=== PATIENT | male | born 1950 | race Caucasian/White ===

== ENCOUNTER 2016-12-29 08:00 | Outpatient (CLI) | payer OTHER ==
[2016-12-29 13:18] LABS: BASOPHILS # (AUTO) 0.1 10^3/uL (0.0-0.1); BASOPHILS % (AUTO) 0.7 %; EOSINOPHILS # (AUTO) 0.4 10^3/uL (0.0-0.7); EOSINOPHILS % (AUTO) 4.5 %; HCT - HEMATOCRIT 47.7 % (42.0-52.0); HGB - HEMOGLOBIN 16.7 g/dL (14.0-18.0); LYMPHOCYTES % (AUTO) 24.8 %; MEAN CORPUSCULAR HEMOGLOBIN 31.7 pg (27.0-31.0); MEAN CORPUSCULAR VOLUME 90.4 fL (80.0-94.0); MEAN PLATELET VOLUME 8.3 fL (7.4-11.4); MONOCYTES # (AUTO) 0.6 10^3/uL (0.0-1.0); MONOCYTES % (AUTO) 7.5 %; NEUTROPHILS % (AUTO) 62.5 %; NUCLEATED RED BLOOD CELLS AUTO 0.1 /100WBC; RED BLOOD COUNT 5.27 10^6/uL (4.70-6.10); RED CELL DISTRIBUTION WIDTH 14.2 % (12.0-15.0); UNCORRECTED WHITE BLOOD COUNT 7.9 x10^3/uL; WHITE BLOOD COUNT 7.9 x10^3/uL (4.8-10.8)
[2016-12-29 13:43] LABS: ALBUMIN/GLOBULIN RATIO 1.5 (1.0-2.2); BILIRUBIN,TOTAL 0.5 mg/dL (0.2-1.0); BUN - BLOOD UREA NITROGEN 15 mg/dL (6-20); CALCIUM 9.3 mg/dL (8.5-10.3); CARBON DIOXIDE - CO2 26 mmol/L (21-32); CHLORIDE 102 mmol/L (101-111); CHOL/HDL RATIO 4.2 (<5.0); CHOLESTEROL 146 mg/dL; CREATININE 1.5 mg/dL (0.6-1.2); GFR - MDRD 47 (>89); GLUCOSE 110 mg/dL (70-100); HDL CHOLESTEROL 35 mg/dL; LDL/HDL RATIO 1.5 (<3.6); SODIUM 136 mmol/L (135-145); TOTAL PROTEIN 7.2 g/dL (6.7-8.2); TRIGLYCERIDES 284 mg/dL; VLDL CHOLESTEROL 57 mg/dL
== END 2016-12-29 08:01 | disposition home or self-care (01) ==
LOC: LAB.WCP 08:00
PROVIDERS: ATTEND Family Medicine
DX: N18.3 Chronic kidney disease, stage 3 (moderate) (principal); M10.00 Idiopathic gout, unspecified site; I10 Essential (primary) hypertension; R97.20 Elevated prostate specific antigen [PSA]
CPT/HCPCS: 36415; 80053; 80061; 84153; 84443; 84550; 85025

== ENCOUNTER 2017-09-16 16:39 | Outpatient (CLI) | payer OTHER ==
[2017-09-16 19:57] LABS: HIV RAPID SCREEN NEGATIVE (NEGATIVE)
[2017-09-17 12:56] LABS: HIV AG/AB 4TH GEN NON-REACTIVE (NON-REACTIVE)
[2017-09-17 13:24] LABS: HEPATITIS B SURFACE ANTIGEN NON-REACTIVE (NON-REACTIVE); HEPATITIS C ANTIBODY NON-REACTIVE (NON-REACTIVE)
== END 2017-09-16 16:40 | disposition home or self-care (01) ==
LOC: LAB.WCP 16:39
PROVIDERS: ATTEND Dentist
DX: Z77.21 Contact with and (suspected) exposure to potentially hazardous body fluids (principal); W46.1XXA Contact with contaminated hypodermic needle, initial encounter
CPT/HCPCS: 36415; 86803; 87340; 87389

== ENCOUNTER 2018-01-23 08:14 | Outpatient (CLI) | payer OTHER, MEDICARE ==
[2018-01-23 12:52] LABS: BASOPHILS % (AUTO) 0.5 %; EOSINOPHILS # (AUTO) 0.3 10^3/uL (0.0-0.7); EOSINOPHILS % (AUTO) 3.4 %; HGB - HEMOGLOBIN 16.4 g/dL (14.0-18.0); LYMPHOCYTES # (AUTO) 2.2 10^3/uL (1.5-3.5); LYMPHOCYTES % (AUTO) 23.7 %; MEAN CORPUSCULAR HEMOGLOBIN 31.2 pg (27.0-31.0); MEAN CORPUSCULAR HGB CONC 34.5 g/dL (32.0-36.0); MEAN CORPUSCULAR VOLUME 90.2 fL (80.0-94.0); MEAN PLATELET VOLUME 8.2 fL (7.4-11.4); MONOCYTES # (AUTO) 0.7 10^3/uL (0.0-1.0); MONOCYTES % (AUTO) 7.7 %; NEUTROPHILS % (AUTO) 64.7 %; PLT - PLATELET COUNT 208 10^3/uL (130-450); RED BLOOD COUNT 5.27 10^6/uL (4.70-6.10); RED CELL DISTRIBUTION WIDTH 14.2 % (12.0-15.0); WHITE BLOOD COUNT 9.2 x10^3/uL (4.8-10.8)
[2018-01-23 13:14] LABS: ALBUMIN/GLOBULIN RATIO 1.2 (1.0-2.2); ALKALINE PHOSPHATASE 86 IU/L (42-121); ALT ALANINE AMINOTRANSFERASE 31 IU/L (10-60); AST ASPARTATE AMINOTRANSFERASE 21 IU/L (10-42); BILIRUBIN,TOTAL 0.9 mg/dL (0.2-1.0); BUN - BLOOD UREA NITROGEN 16 mg/dL (6-20); CALCIUM 9.7 mg/dL (8.5-10.3); CARBON DIOXIDE - CO2 27 mmol/L (21-32); CHLORIDE 100 mmol/L (101-111); CHOL/HDL RATIO 3.3 (<5.0); CHOLESTEROL 150 mg/dL; CREATININE 1.4 mg/dL (0.6-1.2); GFR - MDRD 51 (>89); GLUCOSE 104 mg/dL (70-100); HDL CHOLESTEROL 45 mg/dL; LDL CHOLESTEROL,CALCULATED 86 mg/dL; LDL/HDL RATIO 1.9 (<3.6); SODIUM 135 mmol/L (135-145); TOTAL PROTEIN 7.4 g/dL (6.7-8.2); VLDL CHOLESTEROL 19 mg/dL
== END 2018-01-23 23:59 | disposition home or self-care (01) ==
LOC: LAB.WCP 08:14
PROVIDERS: ATTEND Family Medicine
DX: I12.9 Hypertensive chronic kidney disease with stage 1 through stage 4 chronic kidney disease, or unspecified chronic kidney disease (principal); N18.3 Chronic kidney disease, stage 3 (moderate)
CPT/HCPCS: 36415; 80053; 80061; 83721; 84443; 85025

== ENCOUNTER 2018-01-29 12:40 | Outpatient (CLI) | payer OTHER, MEDICARE | END 2018-01-29 12:41 | disposition home or self-care (01) | LOC: DI 12:40 | PROVIDERS: ATTEND Family Medicine | DX: I48.91 Unspecified atrial fibrillation (principal) | CPT/HCPCS: 93306 ==

== ENCOUNTER 2018-02-22 11:49 | Outpatient (CLI) | payer OTHER, MEDICARE ==
[2018-02-22 19:07] LABS: BASOPHILS % (AUTO) 0.2 %; EOSINOPHILS # (AUTO) 0.7 10^3/uL (0.0-0.7); HGB - HEMOGLOBIN 17.6 g/dL (14.0-18.0); LYMPHOCYTES # (AUTO) 0.9 10^3/uL (1.5-3.5); LYMPHOCYTES % (AUTO) 4.8 %; MEAN CORPUSCULAR HEMOGLOBIN 30.8 pg (27.0-31.0); MEAN CORPUSCULAR HGB CONC 33.2 g/dL (32.0-36.0); MEAN CORPUSCULAR VOLUME 92.8 fL (80.0-94.0); MONOCYTES # (AUTO) 1.2 10^3/uL (0.0-1.0); MONOCYTES % (AUTO) 6.5 %; NEUTROPHILS # (AUTO) 15.3 10^3/uL (1.5-6.6); NEUTROPHILS % (AUTO) 84.5 %; PLT - PLATELET COUNT 218 10^3/uL (130-450); RED BLOOD COUNT 5.71 10^6/uL (4.70-6.10); RED CELL DISTRIBUTION WIDTH 14.1 % (12.0-15.0)
[2018-02-22 19:16] LABS: ALBUMIN 4.3 g/dL (3.2-5.5); ALBUMIN/GLOBULIN RATIO 1.5 (1.0-2.2); BILIRUBIN,TOTAL 0.8 mg/dL (0.2-1.0); CALCIUM 9.3 mg/dL (8.5-10.3); CREATININE 1.3 mg/dL (0.6-1.2); TOTAL PROTEIN 7.1 g/dL (6.7-8.2)
== END 2018-02-22 23:59 | disposition home or self-care (01) ==
LOC: LAB.WCP 11:49
PROVIDERS: ATTEND Family Medicine
DX: R10.9 Unspecified abdominal pain (principal); R19.7 Diarrhea, unspecified
CPT/HCPCS: 36415; 80053; 82150; 83690; 85025

== ENCOUNTER 2018-03-24 09:37 | Outpatient (CLI) | payer OTHER, MEDICARE ==
--- NOTE | 2018-03-24 12:51 | CARDIAC PROCEDURE NOTE ---
DATE OF SERVICE: 03/24/2018 Physician: Gregoria Alvarez MD, [facility] INDICATION: Atrial fibrillation. CARDIAC RISK FACTORS: Male gender, advanced age, hypertension family history of CAD. PROCEDURE: After signing informed consent, the patient underwent a Cliff- protocol treadmill stress test with nuclear myocardial perfusion imaging. Resting heart rate: 54 in sinus rhythm. Peak heart rate: 174 in atrial fibrillation (this is >100% predicted maximum heart rate for age). Resting blood pressure: 132/72. Peak blood pressure: 170/80. The patient exercised for 4 minutes and 23 seconds on a Cliff-protocol treadmill stress test. His heart rate increased normally and was in sinus rhythm at rates of 120 in stage 1, and then is stage 2 he went into atrial fibrillation with rapid rate in the 160s. His peak heart rate was 174 (>100% PMHR). The patient remained in atrial fibrillation all through recovery. The patient had mild shortness of breath at the first stage, and moderate to severe shortness of breath at the second stage, and also complained of 3/10 chest pain at peak which resolved after 2 minutes of recovery. He rated his exertional level at 16 to 17 on the Neri scale ("very difficult"). Oxygen saturation was 99% at peak on room air. EKG at rest: Normal sinus rhythm, left atrial enlargement, early R/S transition. EKG at peak: Atrial fibrillation with diffuse nonspecific ST segment changes including [address] depressions in leads II, III and aVF and v4 through v6, and [address] depression in v3, and [address] depression in v2. Unchanged early R/S transition. SUMMARY 1. Abnormal resting EKG and abnormal development of atrial fibrillation during treadmill exercise. 2. Atrial fibrillation with rapid ventricular response at peak, which persisted through recovery. 3. Symptoms of chest pain occurred at peak exercise, at peak heart rate. 4. Ischemic changes are present by EKG criteria during this treadmill stress test. 5. Nuclear images reported separately. 6. The patient was advised that his test was abnormal and that he should not be performing his routine elliptical exercise work-out or doing other exertion such as shoveling snow, until he is okayed to do so by his medical providers. 7. I spoke to Dr. Etienne regarding all the above (since Dr Metzger was called but was out of town). cc: Lillie Rondon MD TD: 03/24/2018 12:38 [email or web address]
--- NOTE | 2018-03-24 15:34 | Nuclear Medicine Report ---
Reason: A FIB Procedure Date: 03/24/2018 Accession Number: [id number] / [id number] Procedure: NM - Myocardial Perfusion STR/RST CPT Code: FULL RESULT: EXAM: SINGLE-ISOTOPE EXERCISE STRESS TEST. SINGLE-ISOTOPE AND ONE-DAY REST/STRESS MYOCARDIAL PERFUSION SCANS WITH TOMOGRAPHIC IMAGING, QUANTITATIVE ANALYSIS, WALL MOTION ANALYSIS AND CALCULATION OF EJECTION FRACTION. EXAM DATE: 03/24/2018 01:19 PM. CLINICAL HISTORY: Atrial fibrillation. COMPARISON: None available. TECHNIQUE: A rest myocardial perfusion scan was done with tomography after the intravenous administration of 10.5 mCi Tc-99m sestamibi. After an appropriate delay, a treadmill exercise stress was performed according to department protocol. The patient exercised for 4 minutes and 23 seconds. The maximum heart rate was 174 bpm, which was 112% of the maximum predicted heart rate of 155 bpm. At approximately peak heart rate, 43.7 mCi of Tc-99m sestamibi was injected for stress myocardial perfusion scan. Motion correction was applied when appropriate. Gated tomographic images were obtained for wall motion analysis and computation of left ventricular ejection fraction. FINDINGS: On visual analysis, no fixed or reversible perfusion defects are evident. Computer analysis. Summed stress score 5 Summed rest score 0 Summed difference score 5 Wall motion analysis demonstrates septal hypokinesis The left ventricular end-diastolic volume is 63 cc. The left ventricular end-systolic volume is 16 cc. The left ventricular ejection fraction is calculated to be 75%. IMPRESSION: 1. On visual analysis, no fixed or reversible perfusion defects. 2. Normal left ventricular ejection fraction of 75%. 3. Septal hypokinesis. 4. Normal left ventricular cavity size, no change with stress. 5. On computer analysis, mildly abnormal exam with moderate ischemia. RADIA
== END 2018-03-24 09:38 | disposition home or self-care (01) ==
LOC: DI 09:37
PROVIDERS: ATTEND Internal Medicine Cardiovascular Disease
DX: I25.9 Chronic ischemic heart disease, unspecified (principal); R94.31 Abnormal electrocardiogram [ECG] [EKG]; I48.91 Unspecified atrial fibrillation; R07.9 Chest pain, unspecified; I10 Essential (primary) hypertension; Z82.49 Family history of ischemic heart disease and other diseases of the circulatory system
CPT/HCPCS: 78452; 93017; A9500

== ENCOUNTER 2018-04-28 15:10 | Outpatient (CLI) | payer OTHER, MEDICARE ==
[2018-04-28 20:11] LABS: CALCIUM 9.3 mg/dL (8.5-10.3); CREATININE 1.5 mg/dL (0.6-1.2)
== END 2018-04-28 23:59 ==
LOC: LAB.WCP 15:10
PROVIDERS: ATTEND Family Medicine
DX: I48.91 Unspecified atrial fibrillation (principal); Z12.5 Encounter for screening for malignant neoplasm of prostate
CPT/HCPCS: 36415; 80048; 84153

== ENCOUNTER 2019-04-27 08:00 | Outpatient (CLI) | payer OTHER, MEDICARE ==
[2019-04-27 12:22] LABS: BASOPHILS # (AUTO) 0.1 10^3/uL (0.0-0.1); BASOPHILS % (AUTO) 0.8 %; EOSINOPHILS # (AUTO) 0.3 10^3/uL (0.0-0.7); EOSINOPHILS % (AUTO) 3.6 %; HGB - HEMOGLOBIN 16.3 g/dL (14.0-18.0); LYMPHOCYTES % (AUTO) 26.2 %; MEAN CORPUSCULAR HEMOGLOBIN 30.9 pg (27.0-31.0); MEAN CORPUSCULAR HGB CONC 33.3 g/dL (32.0-36.0); MEAN CORPUSCULAR VOLUME 92.8 fL (80.0-94.0); MEAN PLATELET VOLUME 9.9 fL (7.4-11.4); MONOCYTES # (AUTO) 0.7 10^3/uL (0.0-1.0); MONOCYTES % (AUTO) 8.8 %; NEUTROPHILS # (AUTO) 4.7 10^3/uL (1.5-6.6); NEUTROPHILS % (AUTO) 60.1 %; PLT - PLATELET COUNT 184 10^3/uL (130-450); RED BLOOD COUNT 5.28 10^6/uL (4.70-6.10); RED CELL DISTRIBUTION WIDTH 13.5 % (12.0-15.0); WHITE BLOOD COUNT 7.8 x10^3/uL (4.8-10.8)
[2019-04-27 12:58] LABS: ALBUMIN 4.2 g/dL (3.2-5.5); ALBUMIN/GLOBULIN RATIO 1.4 (1.0-2.2); ALKALINE PHOSPHATASE 69 IU/L (42-121); ALT ALANINE AMINOTRANSFERASE 47 IU/L (10-60); AST ASPARTATE AMINOTRANSFERASE 36 IU/L (10-42); BILIRUBIN,TOTAL 0.6 mg/dL (0.2-1.0); BUN - BLOOD UREA NITROGEN 20 mg/dL (6-20); CALCIUM 9.4 mg/dL (8.5-10.3); CARBON DIOXIDE - CO2 29 mmol/L (21-32); CHLORIDE 102 mmol/L (101-111); CHOL/HDL RATIO 3.5 (<5.0); CHOLESTEROL 142 mg/dL; CREATININE 1.6 mg/dL (0.6-1.2); GFR - MDRD 43 (>89); GLUCOSE 128 mg/dL (70-100); HDL CHOLESTEROL 41 mg/dL; LDL CHOLESTEROL,CALCULATED 74 mg/dL; LDL/HDL RATIO 1.8 (<3.6); SODIUM 138 mmol/L (135-145); TOTAL PROTEIN 7.3 g/dL (6.7-8.2); VLDL CHOLESTEROL 27 mg/dL
[2019-04-27 13:03] LABS: PSA FREE 0.904 ng/mL (0.16-2.81)
[2019-04-27 13:04] LABS: PSA TOTAL 3.095 ng/mL (0.000-2.000)
== END 2019-04-27 23:59 | disposition home or self-care (01) ==
LOC: LAB.WCP 08:00
PROVIDERS: ATTEND Family Medicine
DX: I48.91 Unspecified atrial fibrillation (principal); N18.3 Chronic kidney disease, stage 3 (moderate); R97.20 Elevated prostate specific antigen [PSA]
CPT/HCPCS: 36415; 80053; 80061; 83721; 84153; 84154; 84443; 85025

== ENCOUNTER 2019-10-28 22:35 | Emergency (ER) | payer OTHER, MEDICARE ==
--- NOTE | 2019-10-28 22:37 | ED Physician Documentation ---
PD HPI HEENT - Stated complaint Stated Complaint: DIFFICULTY SWALLOWING - History obtained from History obtained from: Patient - History of Present Illness Timing - onset: Enter time (21:30), Today Timing - details: Abrupt onset, Still present Pain level now: 0 Location: Other (upper midline chest) Improves: Nothing Worsens: Swalllowing Associated symptoms: No: Fever Recently seen: Not recently seen - Additional information Additional information: patient was eating dinner tonight, approximately 9:30 PM, when he had sensation of something getting stuck (he points to mid/upper midline chest). He says he hasn't been able to eat or drink anything since then; he says he has had similar symptoms before but "usually I can drink enough water to make it go away". Review of Systems Constitutional: denies: Fever, Chills, Sweats Throat: denies: Sore throat Cardiac: reports: Chest pain / pressure. denies: Palpitations, Pedal edema, Calf pain Respiratory: denies: Dyspnea, Cough GI: denies: Abdominal Pain, Nausea, Vomiting PD PAST MEDICAL HISTORY - Past Medical History Cardiovascular: Hypertension, Atrial fibrillation Endocrine/Autoimmune: None - Present Medications Home Medications: Ambulatory Orders Medication Instructions Recorded Confirmed Metoprolol Succinate 25 mg PO DAILY 10/28/19 10/28/19 Rivaroxaban [Xarelto] 10 mg PO DAILY 10/28/19 10/28/19 - Allergies Allergies/Adverse Reactions: Allergies Allergy/AdvReac Type Severity Reaction Status Date / Time No Known Drug Allergies Allergy Verified 10/28/19 22:47 - Living Situation Living Arrangement: reports: At home - Social History Does the pt smoke?: No Smoking Status: Never smoker Does the pt drink ETOH?: No Does the pt have substance abuse?: No - Immunizations Immunizations are current?: No Immunizations: TDAP >10years/unknown PD ED PE NORMAL - Vitals Vital signs reviewed: Yes - General General: Alert and oriented X 3, No acute distress, Well developed/nourished - HEENT HEENT: Moist mucous membranes - Cardiac Cardiac: No murmur - Respiratory Respiratory: No respiratory distress, Clear bilaterally - Abdomen Abdomen: Soft, Non tender, Non distended PD ED PE EXPANDED - Cardiac Cardiac: Irregularly irregular Results - Vitals Vitals: Vital Signs - 24 hr 10/28/19 10/28/19 10/28/19 22:35 23:18 23:35 Temperature 35.9 C L 36.4 C L Heart Rate 85 91 86 Respiratory 16 17 20 Rate Blood Pressure 177/112 H 169/117 H 159/114 H O2 Saturation 97 96 98 10/29/19 10/29/19 00:27 01:10 Temperature 36.4 C L Heart Rate 87 87 Respiratory 16 16 Rate Blood Pressure 159/114 H 177/111 H O2 Saturation 97 98 Oxygen O2 Source Room air - EKG (time done) No standard instances Rate: Rate (enter#) (85) Rhythm: Atrial fibrillation [place]: Normal QRS: Normal Ischemia: Normal ST segments - Labs Labs: Laboratory Tests 10/28/19 10/28/19 10/28/19 22:50 22:50 22:50 WBC 7.7 RBC 5.59 Hgb 17.6 Hct 51.6 MCV 92.3 MCH 31.5 H MCHC 34.1 RDW 13.2 Plt Count 185 MPV 9.4 Neut # (Auto) 4.5 Lymph # (Auto) 2.1 [place] # (Auto) 0.7 Eos # (Auto) 0.3 Baso # (Auto) 0.1 Absolute Nucleated RBC 0.00 Nucleated RBC % 0.0 PT 17.5 H INR 1.6 H APTT 43.4 H Sodium 141 Potassium 4.0 Chloride 104 Carbon Dioxide 29 Anion Gap 8.0 BUN 15 Creatinine 1.4 H Estimated GFR (MDRD) 51 L Glucose 118 H Calcium 9.2 Total Bilirubin 0.9 AST 24 ALT 33 Alkaline Phosphatase 76 Total Protein 7.3 Albumin 4.4 Globulin 2.9 Albumin/Globulin Ratio 1.5 Lipase 89 H - Rads (name of study) chest xray Radiology: Prelim report reviewed, See rad report PD MEDICAL DECISION MAKING - ED course Complexity details: reviewed results, re-evaluated patient, considered differential, d/w patient ED course: Patient had no change in symptoms after IV glucagon and observation. He continued to not be able to even swallow his own saliva. He wanted to try to drink water and then soda, as he usually has been able to obtain symptomatic relief with drinking fluids; he was unable to tolerate these. D/W Dr. Boo, will provide holding orders with plan to perform SDS at 6 AM (upper endoscopy). Patient was agreeable with this plan. Shortly before patient was to go to the floor, he reported sudden resolution of his symptoms and was able to tolerate several cups of water. He requests d/c home. He is discharged with encouragement to f/u with his PMD for consideration of upper endoscopy in outpatient setting. I updated Dr. Boo with this development and he is aware patient is getting discharged. Departure - Departure Disposition: 01 Home, Self Care Clinical Impression: Esophageal obstruction Condition: Good Instructions: ED Foreign Body Esophageal Rslv Follow-Up: Jose Etienne MD [Primary Care Provider] - Discharge Date/Time: 10/29/19 01:21
[2019-10-28] MEDS ORDERED: GLUCAGON 1 MG/ML VIAL IVP STA (22:49)
[2019-10-28 22:59] LABS: BASOPHILS # (AUTO) 0.1 10^3/uL (0.0-0.1); BASOPHILS % (AUTO) 0.9 %; EOSINOPHILS # (AUTO) 0.3 10^3/uL (0.0-0.7); EOSINOPHILS % (AUTO) 4.3 %; HGB - HEMOGLOBIN 17.6 g/dL (14.0-18.0); LYMPHOCYTES # (AUTO) 2.1 10^3/uL (1.5-3.5); LYMPHOCYTES % (AUTO) 26.8 %; MEAN CORPUSCULAR HEMOGLOBIN 31.5 pg (27.0-31.0); MEAN CORPUSCULAR HGB CONC 34.1 g/dL (32.0-36.0); MEAN CORPUSCULAR VOLUME 92.3 fL (80.0-94.0); MEAN PLATELET VOLUME 9.4 fL (7.4-11.4); MONOCYTES # (AUTO) 0.7 10^3/uL (0.0-1.0); MONOCYTES % (AUTO) 8.6 %; NEUTROPHILS # (AUTO) 4.5 10^3/uL (1.5-6.6); NEUTROPHILS % (AUTO) 58.7 %; PLT - PLATELET COUNT 185 10^3/uL (130-450); RED BLOOD COUNT 5.59 10^6/uL (4.70-6.10); RED CELL DISTRIBUTION WIDTH 13.2 % (12.0-15.0); WHITE BLOOD COUNT 7.7 x10^3/uL (4.8-10.8)
[2019-10-28 23:04] LABS: INR 1.6 (0.8-1.2); PT - PROTHROMBIN TIME 17.5 secs (9.9-12.6)
[2019-10-28 23:11] LABS: ALBUMIN 4.4 g/dL (3.2-5.5); ALBUMIN/GLOBULIN RATIO 1.5 (1.0-2.2); BILIRUBIN,TOTAL 0.9 mg/dL (0.2-1.0); CALCIUM 9.2 mg/dL (8.5-10.3); CREATININE 1.4 mg/dL (0.6-1.2); PARTIAL THROMBOPLASTIN TIME 43.4 secs (24.9-33.3); TOTAL PROTEIN 7.3 g/dL (6.7-8.2)
[2019-10-29 01:21] VITALS: BP 177/111
--- NOTE | 2019-10-29 08:24 | XRAY Report ---
PROCEDURE: Chest 1 View X-Ray INDICATIONS: chest discomfort TECHNIQUE: One view of the chest was acquired. COMPARISON: None FINDINGS: Surgical changes and devices: None. Lungs and pleura: No pleural effusions or pneumothorax. Lungs are clear. Mediastinum: Mediastinal contours appear normal. Heart size is normal. Bones and chest wall: No suspicious bony lesions. Overlying soft tissues appear unremarkable. IMPRESSION: Normal for age, source of current chest discomfort is not identified. Agree with preliminary interpretation. Reviewed by: Rory Kirkpatrick MD on 10/29/2019 8:22 AM PDT Approved by: Rory Kirkpatrick MD on 10/29/2019 8:22 AM PDT Station ID: [id number]
== END 2019-10-29 01:21 | disposition home or self-care (01) ==
LOC: ED 22:35
DX: K22.2 Esophageal obstruction (principal); I48.91 Unspecified atrial fibrillation; I10 Essential (primary) hypertension
CPT/HCPCS: 36415; 71045; 80053; 83690; 85025; 85610; 85730; 93005; 96374; 99284

== ENCOUNTER 2020-02-05 10:11 | Outpatient (CLI) | payer OTHER, MEDICARE | END 2020-02-05 10:12 | disposition home or self-care (01) | LOC: DI 10:11 | PROVIDERS: ATTEND Internal Medicine Cardiovascular Disease | DX: I48.91 Unspecified atrial fibrillation (principal) | CPT/HCPCS: 93306 ==

== ENCOUNTER 2020-03-17 07:00 | Outpatient (CLI) | payer OTHER, MEDICARE | END 2020-03-17 23:59 | disposition home or self-care (01) | LOC: COV 07:00 | PROVIDERS: ATTEND Surgery | DX: Z01.812 Encounter for preprocedural laboratory examination (principal); R13.10 Dysphagia, unspecified; Z86.010 Personal history of colon polyps; Z20.822 Contact with and (suspected) exposure to COVID-19 ==

== ENCOUNTER 2020-03-21 10:13 | Day surgery (SDC) | payer OTHER, MEDICARE ==
[2020-03-21] MEDS ORDERED: LIDO GARGLE 30 ML BOTTLE ONE (10:46)
[2020-03-21] MEDS ORDERED: LACTATED RINGERS 1,000 ML IV ONE (10:59)
[2020-03-21] MEDS ORDERED: LIDO GARGLE 30 ML BOTTLE TOP ONE ×2 (11:24→11:46)
[2020-03-21] MEDS ORDERED: BENZOCAINE/TETRACAINE/BUTAMBEN 20 GM TOP ONE ×2 (11:24→11:46)
--- NOTE | 2020-03-21 11:40 | HISTORY & PHYSICAL EXAMINATION ---
Chief Complaint - Chief Complaint Chief Complaint: occasional trouble swallowing and reflux. History of Present Illness - History Obtained From History obtained from: patient Exam Limitations: none - History of Present Illness HPI Comment/Other: He has had occasional trouble swallowing as well as heart burn. He had a colon polyp removed 8 years ago. He is here for EGD and colonoscopy History - Past Medical History Cardiovascular: reports: Hypertension, Atrial fibrillation Respiratory: reports: None Endocrine/Autoimmune: reports: None GI: reports: None : reports: None HEENT: reports: Other Psych: reports: None Musculoskeletal: reports: None Derm: reports: None MRSA Hx?: No - Past Surgical History General: HEENT: reports: Other - POLST Patient has POLST: No Meds/Allgy - Home Medications Home Medications: Ambulatory Orders Medication Instructions Recorded Confirmed Metoprolol Succinate 25 mg PO BID 10/28/19 03/21/20 Rivaroxaban [Xarelto] 5 mg PO DAILY 10/28/19 03/20/20 - Allergies Allergies/Adverse Reactions: Allergies Allergy/AdvReac Type Severity Reaction Status Date / Time Latex, Natural Rubber Allergy Unknown Verified 03/20/20 12:32 lisinopril Allergy Unknown Verified 03/20/20 12:32 shellfish derived Allergy Unknown Verified 03/20/20 12:32 shrimp Allergy Unknown Verified 03/20/20 12:32 Review of Systems - Constitutional Constitutional: reports: Fatigue (10 pt ros as above otherwise unremarkable) Exam - Vital Signs Reviewed Vital Signs: Yes Vital Signs: Vital Signs x48h Temp Pulse Resp BP Pulse Ox 03/21/20 10:38 36.1 C L 55 L 20 157/92 H 98 - Physical Exam General Appearance: positive: No acute distress, Alert Eyes Bilateral: positive: Normal inspection, PERRL Neck: positive: No JVD Respiratory: positive: No respiratory distress Cardiovascular: positive: Regular rate & rhythm Abdomen: positive: Non-tender, No distention Neurologic/Psychiatric: positive: Oriented x3 Conclusion/Plan - Problem List (1) Dysphagia Conclusion/Plan: He has had trouble swallowing and heart burn. He has history of a colon polyp on colonoscopy 2012. plan egd and colonoscopy. parq held and consent obtained
[2020-03-21] MEDS ORDERED: MIDAZOLAM 2 MG/2 ML VIAL ONE ×4 (11:42→12:28)
[2020-03-21] MEDS ORDERED: fentaNYL 250 MCG/5 ML VIAL ONE (11:42)
[2020-03-21] MEDS ORDERED: LACTATED RINGERS 275 ML IV ONE (12:48)
[2020-03-21 13:36] VITALS: BP 131/92
== END 2020-03-21 10:14 | disposition home or self-care (01) ==
LOC: SDS 10:13
PROVIDERS: ATTEND Surgery
PROC: 0DBP8ZX Excision of Rectum, Via Natural or Artificial Opening Endoscopic, Diagnostic (ICD-10-PCS; 2020-03-21)
PROC: 0DBM8ZZ Excision of Descending Colon, Via Natural or Artificial Opening Endoscopic (ICD-10-PCS; 2020-03-21)
PROC: 0DB98ZX Excision of Duodenum, Via Natural or Artificial Opening Endoscopic, Diagnostic (ICD-10-PCS; 2020-03-21)
PROC: 0DB78ZX Excision of Stomach, Pylorus, Via Natural or Artificial Opening Endoscopic, Diagnostic (ICD-10-PCS; 2020-03-21)
PROC: 0DB68ZX Excision of Stomach, Via Natural or Artificial Opening Endoscopic, Diagnostic (ICD-10-PCS; 2020-03-21)
PROC: 0DBK8ZZ Excision of Ascending Colon, Via Natural or Artificial Opening Endoscopic (ICD-10-PCS; principal; 2020-03-21 12:30)
PROC: 0DBL8ZZ Excision of Transverse Colon, Via Natural or Artificial Opening Endoscopic (ICD-10-PCS; 2020-03-21 12:30)
DX: Z12.11 Encounter for screening for malignant neoplasm of colon (principal); R13.10 Dysphagia, unspecified; K21.9 Gastro-esophageal reflux disease without esophagitis; D12.2 Benign neoplasm of ascending colon; D12.3 Benign neoplasm of transverse colon; D12.4 Benign neoplasm of descending colon; K62.1 Rectal polyp; K64.4 Residual hemorrhoidal skin tags; K57.30 Diverticulosis of large intestine without perforation or abscess without bleeding; K29.70 Gastritis, unspecified, without bleeding; K29.80 Duodenitis without bleeding; I10 Essential (primary) hypertension; I48.91 Unspecified atrial fibrillation
CPT/HCPCS: 43239; 45380; A9270; J3010; J7120

== ENCOUNTER 2020-04-18 08:00 | Outpatient (CLI) | payer OTHER, MEDICARE ==
[2020-04-18 12:05] LABS: BASOPHILS # (AUTO) 0.1 10^3/uL (0.0-0.1); BASOPHILS % (AUTO) 0.9 %; EOSINOPHILS # (AUTO) 0.3 10^3/uL (0.0-0.7); EOSINOPHILS % (AUTO) 4.4 %; HCT - HEMATOCRIT 49.4 % (42.0-52.0); HGB - HEMOGLOBIN 16.4 g/dL (14.0-18.0); LYMPHOCYTES % (AUTO) 26.4 %; MEAN CORPUSCULAR HEMOGLOBIN 31.2 pg (27.0-31.0); MEAN CORPUSCULAR HGB CONC 33.2 g/dL (32.0-36.0); MEAN CORPUSCULAR VOLUME 93.9 fL (80.0-94.0); MEAN PLATELET VOLUME 10.3 fL (7.4-11.4); MONOCYTES # (AUTO) 0.6 10^3/uL (0.0-1.0); MONOCYTES % (AUTO) 8.5 %; NEUTROPHILS # (AUTO) 4.5 10^3/uL (1.5-6.6); NEUTROPHILS % (AUTO) 59.4 %; PLT - PLATELET COUNT 198 10^3/uL (130-450); RED BLOOD COUNT 5.26 10^6/uL (4.70-6.10); RED CELL DISTRIBUTION WIDTH 13.1 % (12.0-15.0); WHITE BLOOD COUNT 7.6 x10^3/uL (4.8-10.8)
[2020-04-18 13:11] LABS: ALBUMIN 4.4 g/dL (3.2-5.5); ALBUMIN/GLOBULIN RATIO 1.5 (1.0-2.2); ALKALINE PHOSPHATASE 82 IU/L (42-121); ALT ALANINE AMINOTRANSFERASE 70 IU/L (10-60); AST ASPARTATE AMINOTRANSFERASE 75 IU/L (10-42); BILIRUBIN,TOTAL 0.8 mg/dL (0.2-1.0); BUN - BLOOD UREA NITROGEN 15 mg/dL (6-20); CALCIUM 9.6 mg/dL (8.5-10.3); CARBON DIOXIDE - CO2 28 mmol/L (21-32); CHLORIDE 100 mmol/L (101-111); CHOL/HDL RATIO 3.2 (<5.0); CHOLESTEROL 160 mg/dL; CREATININE 1.4 mg/dL (0.6-1.2); GFR - MDRD 51 (>89); GLUCOSE 105 mg/dL (70-100); HDL CHOLESTEROL 50 mg/dL; LDL CHOLESTEROL,CALCULATED 66 mg/dL; LDL/HDL RATIO 1.3 (<3.6); POTASSIUM 4.3 mmol/L (3.5-5.0); SODIUM 138 mmol/L (135-145); TOTAL PROTEIN 7.3 g/dL (6.7-8.2); TRIGLYCERIDES 218 mg/dL; VLDL CHOLESTEROL 44 mg/dL
[2020-04-18 13:12] LABS: THYROID STIMULATING HORMONE 1.5 uIU/mL (0.34-5.60)
== END 2020-04-18 23:59 | disposition home or self-care (01) ==
LOC: LAB.WCP 08:00
PROVIDERS: ATTEND Family Medicine
DX: I48.91 Unspecified atrial fibrillation (principal); I12.9 Hypertensive chronic kidney disease with stage 1 through stage 4 chronic kidney disease, or unspecified chronic kidney disease; N18.30 Chronic kidney disease, stage 3 unspecified; R73.01 Impaired fasting glucose; D12.6 Benign neoplasm of colon, unspecified
CPT/HCPCS: 36415; 80053; 80061; 83721; 84153; 84443; 85025

== ENCOUNTER 2020-07-27 10:19 | Emergency (ER) | payer OTHER, MEDICARE ==
[2020-07-27 10:28] VITALS: BP 161/81
--- NOTE | 2020-07-27 10:37 | ED Physician Documentation ---
PD HPI HEENT - Stated complaint Stated Complaint: R EAR PRESSURE - Chief complaint Chief Complaint: Heent - History obtained from History obtained from: Patient - History of Present Illness Timing - onset: How many days ago (2) Timing - duration: Days (2) Timing - details: Gradual onset Pain level max: 2 Pain level now: 2 Location: Right ear Improves: Nothing Worsens: Other (nothing) Associated symptoms: No: Fever, Congestion, Rhinorrhea, Trismus, Unable to swallow, Swollen nodes, Facial swelling, Headache, Cough - Additional information Additional information: 69-year-old male feels like his right ear has been clogged for the past 2 days. Nothing makes it better or worse. No fevers. No chills. No cough. No congestion. No sore throat. Review of Systems Ten Systems: 10 systems reviewed and negative Constitutional: denies: Fever, Chills Respiratory: denies: Cough GI: denies: Nausea, Vomiting, Diarrhea Neurologic: denies: Headache PD PAST MEDICAL HISTORY - Past Medical History Cardiovascular: Hypertension, Atrial fibrillation Endocrine/Autoimmune: None HEENT: Other - Past Surgical History Past Surgical History: No - Present Medications Home Medications: Ambulatory Orders Medication Instructions Recorded Confirmed Metoprolol Succinate 25 mg PO BID 10/28/19 03/21/20 Rivaroxaban [Xarelto] 5 mg PO DAILY 10/28/19 03/20/20 - Allergies Allergies/Adverse Reactions: Allergies Allergy/AdvReac Type Severity Reaction Status Date / Time Latex, Natural Rubber Allergy Unknown Verified 07/27/20 10:28 lisinopril Allergy Unknown Verified 07/27/20 10:28 shellfish derived Allergy Unknown Verified 07/27/20 10:28 shrimp Allergy Unknown Verified 07/27/20 10:28 - Social History Does the pt smoke?: No Smoking Status: Never smoker Does the pt drink ETOH?: No Does the pt have substance abuse?: No - Immunizations Immunizations are current?: No Immunizations: TDAP >10years/unknown - POLST Patient has POLST: No PD ED PE NORMAL - Vitals Vital signs reviewed: Yes - General General: Alert and oriented X 3, No acute distress - HEENT HEENT: Moist mucous membranes, Other (Bilateral TMs are obstructed by wax. Right ear canal is completely occluded.) - Neck Neck: Supple, no meningeal sign - Neuro Neuro: Alert and oriented X 3 - Psych Psych: Normal mood, Normal affect Results - Vitals Vitals: Vital Signs - 24 hr 07/27/20 10:22 Temperature 36.3 C L Heart Rate 55 L Respiratory 16 Rate Blood Pressure 161/81 H O2 Saturation 99 Oxygen O2 Source Room air PD MEDICAL DECISION MAKING - ED course Complexity details: reviewed results, re-evaluated patient, considered differential, d/w patient ED course: 69-year-old male with cerumen impaction. Cerumen was removed by the nurse in the emergency department. Repeat evaluation in the throes of a mildly erythematous tympanic membrane, but no more wax. No evidence of infection. Patient counseled regarding signs and symptoms for which I believe and urgent re- evaluation would be necessary. Patient with good understanding of and agreement to plan and is comfortable going home at this time This document was made in part using voice recognition software. While efforts are made to proofread this document, sound alike and grammatical errors may occur. Departure - Departure Disposition: 01 Home, Self Care Clinical Impression: Cerumen impaction Qualifiers: Laterality: right Qualified Code(s): H61.21 - Impacted cerumen, right ear Condition: Good Instructions: ED Wax Ear Home Removal Follow-Up: Kat Curry PA-C [Primary Care Provider] - As Needed Comments: The ear wax was removed from your ear. Follow-up with your doctor for further care as needed. Return if you worsen. Discharge Date/Time: 07/27/20 11:27
== END 2020-07-27 11:27 | disposition home or self-care (01) ==
LOC: ED 10:19
DX: H61.23 Impacted cerumen, bilateral (principal); I10 Essential (primary) hypertension; I48.91 Unspecified atrial fibrillation; Z79.01 Long term (current) use of anticoagulants
CPT/HCPCS: 99282; 99284

== ENCOUNTER 2020-10-30 08:00 | Outpatient (CLI) | payer OTHER, MEDICARE ==
[2020-10-30 12:39] LABS: ALBUMIN 4.9 g/dL (3.2-5.5); ALBUMIN/GLOBULIN RATIO 1.4 (1.0-2.2); ALKALINE PHOSPHATASE 88 IU/L (42-121); ALT ALANINE AMINOTRANSFERASE 54 IU/L (10-60); AST ASPARTATE AMINOTRANSFERASE 40 IU/L (10-42); BILIRUBIN,TOTAL 0.7 mg/dL (0.2-1.0); BUN - BLOOD UREA NITROGEN 16 mg/dL (6-20); CALCIUM 9.6 mg/dL (8.5-10.3); CARBON DIOXIDE - CO2 30 mmol/L (21-32); CHLORIDE 98 mmol/L (101-111); CHOL/HDL RATIO 3.6 (<5.0); CHOLESTEROL 186 mg/dL; CREATININE 1.5 mg/dL (0.6-1.2); GFR - MDRD 47 (>89); GLUCOSE 132 mg/dL (70-100); HDL CHOLESTEROL 52 mg/dL; LDL CHOLESTEROL,CALCULATED 93 mg/dL; LDL/HDL RATIO 1.8 (<3.6); POTASSIUM 4.3 mmol/L (3.5-5.0); SODIUM 138 mmol/L (135-145); TOTAL PROTEIN 8.3 g/dL (6.7-8.2); TRIGLYCERIDES 206 mg/dL; VLDL CHOLESTEROL 41 mg/dL
== END 2020-10-30 23:59 | disposition home or self-care (01) ==
LOC: LAB.WCP 08:00
PROVIDERS: ATTEND Physician Assistant Medical
DX: I10 Essential (primary) hypertension (principal)
CPT/HCPCS: 36415; 80053; 80061; 83721

== ENCOUNTER 2022-02-08 08:37 | Outpatient (CLI) | payer OTHER, MEDICARE ==
[2022-02-08 11:52] LABS: ALBUMIN 4.5 g/dL (3.2-5.5); ALBUMIN/GLOBULIN RATIO 1.5 (1.0-2.2); ALKALINE PHOSPHATASE 76 IU/L (42-121); ALT ALANINE AMINOTRANSFERASE 28 IU/L (10-60); AST ASPARTATE AMINOTRANSFERASE 27 IU/L (10-42); BILIRUBIN,TOTAL 0.8 mg/dL (0.2-1.0); BUN - BLOOD UREA NITROGEN 22 mg/dL (6-20); CALCIUM 9.9 mg/dL (8.5-10.3); CARBON DIOXIDE - CO2 29 mmol/L (21-32); CHLORIDE 102 mmol/L (101-111); CHOL/HDL RATIO 3.7 (<5.0); CHOLESTEROL 172 mg/dL; CREATININE 1.6 mg/dL (0.6-1.2); GFR - MDRD 43 (>89); GLUCOSE 106 mg/dL (70-100); HDL CHOLESTEROL 47 mg/dL; LDL CHOLESTEROL,CALCULATED 84 mg/dL; LDL/HDL RATIO 1.8 (<3.6); POTASSIUM 4.3 mmol/L (3.5-5.0); SODIUM 139 mmol/L (135-145); TOTAL PROTEIN 7.6 g/dL (6.7-8.2); TRIGLYCERIDES 205 mg/dL; VLDL CHOLESTEROL 41 mg/dL
[2022-02-08 12:01] LABS: ESTIMATED AVERAGE GLUCOSE 137 mg/dL (70-100); HEMOGLOBIN A1c% 6.4 % (4.27-6.07)
== END 2022-02-08 08:38 | disposition home or self-care (01) ==
LOC: LAB.N 08:37
PROVIDERS: ATTEND Physician Assistant Medical
DX: I48.91 Unspecified atrial fibrillation (principal); R73.01 Impaired fasting glucose; R97.20 Elevated prostate specific antigen [PSA]
CPT/HCPCS: 36415; 80053; 80061; 83036; 83721; 84153

== ENCOUNTER 2022-08-14 09:26 | Outpatient (CLI) | payer OTHER, MEDICARE ==
[2022-08-14 19:32] LABS: ALBUMIN 3.9 g/dL (3.2-5.5); ALBUMIN/GLOBULIN RATIO 1.2 (1.0-2.2); ALKALINE PHOSPHATASE 69 IU/L (42-121); ALT ALANINE AMINOTRANSFERASE 36 IU/L (10-60); AST ASPARTATE AMINOTRANSFERASE 27 IU/L (10-42); BILIRUBIN,TOTAL 0.6 mg/dL (0.2-1.0); BUN - BLOOD UREA NITROGEN 17 mg/dL (6-20); CALCIUM 9.7 mg/dL (8.5-10.3); CARBON DIOXIDE - CO2 30 mmol/L (21-32); CHLORIDE 104 mmol/L (101-111); CHOL/HDL RATIO 3.5 (<5.0); CHOLESTEROL 167 mg/dL; CREATININE 1.5 mg/dL (0.6-1.2); GFR - MDRD 46 (>89); GLUCOSE 131 mg/dL (70-100); HDL CHOLESTEROL 48 mg/dL; LDL CHOLESTEROL,CALCULATED 100 mg/dL; LDL/HDL RATIO 2.1 (<3.6); POTASSIUM 4.4 mmol/L (3.5-5.0); SODIUM 139 mmol/L (135-145); TOTAL PROTEIN 7.1 g/dL (6.7-8.2); TRIGLYCERIDES 94 mg/dL; VLDL CHOLESTEROL 19 mg/dL
[2022-08-14 21:52] LABS: ESTIMATED AVERAGE GLUCOSE 131 mg/dL (70-100); HEMOGLOBIN A1c% 6.2 % (4.27-6.07)
== END 2022-08-14 09:27 | disposition home or self-care (01) ==
LOC: LAB.N 09:26
PROVIDERS: ATTEND Physician Assistant Medical
DX: I10 Essential (primary) hypertension (principal); R73.01 Impaired fasting glucose
CPT/HCPCS: 36415; 80053; 80061; 83036; 83721

== ENCOUNTER 2023-04-25 15:47 | Outpatient (CLI) | payer MEDICARE, OTHER ==
[2023-04-25 17:45] LABS: BASOPHILS # (AUTO) 0.1 10^3/uL (0.0-0.1); BASOPHILS % (AUTO) 0.9 %; EOSINOPHILS # (AUTO) 0.3 10^3/uL (0.0-0.7); EOSINOPHILS % (AUTO) 3.2 %; HCT - HEMATOCRIT 51.3 % (42.0-52.0); HGB - HEMOGLOBIN 17.2 g/dL (14.0-18.0); LYMPHOCYTES # (AUTO) 1.9 10^3/uL (1.5-3.5); LYMPHOCYTES % (AUTO) 24.7 %; MEAN CORPUSCULAR HEMOGLOBIN 30.3 pg (27.0-31.0); MEAN CORPUSCULAR HGB CONC 33.5 g/dL (32.0-36.0); MEAN CORPUSCULAR VOLUME 90.5 fL (80.0-94.0); MEAN PLATELET VOLUME 9.5 fL (7.4-11.4); MONOCYTES # (AUTO) 0.7 10^3/uL (0.0-1.0); NEUTROPHILS # (AUTO) 4.8 10^3/uL (1.5-6.6); NEUTROPHILS % (AUTO) 61.8 %; PLT - PLATELET COUNT 226 10^3/uL (130-450); RED BLOOD COUNT 5.67 10^6/uL (4.70-6.10); RED CELL DISTRIBUTION WIDTH 13.1 % (12.0-15.0); WHITE BLOOD COUNT 7.7 x10^3/uL (4.8-10.8)
[2023-04-25 18:02] LABS: ESTIMATED AVERAGE GLUCOSE 131 mg/dL (70-100); HEMOGLOBIN A1c% 6.2 % (4.27-6.07)
[2023-04-25 18:15] LABS: ALBUMIN 4.6 g/dL (3.2-5.5); ALBUMIN/GLOBULIN RATIO 1.5 (1.0-2.2); ALKALINE PHOSPHATASE 91 IU/L (42-121); ALT ALANINE AMINOTRANSFERASE 30 IU/L (10-60); AST ASPARTATE AMINOTRANSFERASE 29 IU/L (10-42); BILIRUBIN,TOTAL 0.4 mg/dL (0.2-1.0); BUN - BLOOD UREA NITROGEN 18 mg/dL (6-20); CALCIUM 10.3 mg/dL (8.5-10.3); CARBON DIOXIDE - CO2 31 mmol/L (21-32); CHLORIDE 101 mmol/L (101-111); CHOL/HDL RATIO 3.6 (<5.0); CHOLESTEROL 139 mg/dL; CREATININE 1.5 mg/dL (0.6-1.3); GFR - MDRD 46 (>89); GLUCOSE 122 mg/dL (74-104); HDL CHOLESTEROL 39 mg/dL; LDL CHOLESTEROL,CALCULATED 55 mg/dL; LDL/HDL RATIO 1.4 (<3.6); POTASSIUM 4.1 mmol/L (3.5-4.5); SODIUM 138 mmol/L (135-145); TOTAL PROTEIN 7.6 g/dL (6.4-8.9); TRIGLYCERIDES 225 mg/dL (48-352); VLDL CHOLESTEROL 45 mg/dL
== END 2023-04-25 15:48 | disposition home or self-care (01) ==
LOC: LAB.N 15:47
PROVIDERS: ATTEND Physician Assistant Medical
DX: R73.01 Impaired fasting glucose (principal); R97.20 Elevated prostate specific antigen [PSA]; I10 Essential (primary) hypertension
CPT/HCPCS: 36415; 80053; 80061; 83036; 83721; 84153; 85025

== ENCOUNTER 2023-05-28 15:47 | Emergency (ER) | payer MEDICARE, OTHER ==
[2023-05-28 16:09] VITALS: O2SAT 99
[2023-05-28] MEDS: SODIUM CHLORIDE 0.9% 1,000 ML IV ONE (16:35)
[2023-05-28] MEDS: ONDANSETRON 4 MG/2 ML VIAL IVP STA (16:36)
[2023-05-28 16:38] LABS: BASOPHILS % (AUTO) 0.4 %; EOSINOPHILS # (AUTO) 0.2 10^3/uL (0.0-0.7); EOSINOPHILS % (AUTO) 2.9 %; HCT - HEMATOCRIT 53.8 % (42.0-52.0); HGB - HEMOGLOBIN 17.9 g/dL (14.0-18.0); LYMPHOCYTES # (AUTO) 1.3 10^3/uL (1.5-3.5); LYMPHOCYTES % (AUTO) 18.5 %; MEAN CORPUSCULAR HEMOGLOBIN 30.4 pg (27.0-31.0); MEAN CORPUSCULAR HGB CONC 33.3 g/dL (32.0-36.0); MEAN CORPUSCULAR VOLUME 91.3 fL (80.0-94.0); MEAN PLATELET VOLUME 9.1 fL (7.4-11.4); MONOCYTES # (AUTO) 0.7 10^3/uL (0.0-1.0); MONOCYTES % (AUTO) 9.7 %; NEUTROPHILS # (AUTO) 4.9 10^3/uL (1.5-6.6); NEUTROPHILS % (AUTO) 67.9 %; PLT - PLATELET COUNT 223 10^3/uL (130-450); RED BLOOD COUNT 5.89 10^6/uL (4.70-6.10); WHITE BLOOD COUNT 7.3 x10^3/uL (4.8-10.8)
[2023-05-28 16:48] LABS: MAGNESIUM 2.1 mg/dL (1.7-2.3)
[2023-05-28 16:54] LABS: ALBUMIN 4.9 g/dL (3.2-5.5); ALBUMIN/GLOBULIN RATIO 1.8 (1.0-2.2); BILIRUBIN,TOTAL 0.6 mg/dL (0.2-1.0); CREATININE 1.3 mg/dL (0.6-1.3); POTASSIUM 3.6 mmol/L (3.5-4.5); TOTAL PROTEIN 7.6 g/dL (6.4-8.9)
--- NOTE | 2023-05-28 17:10 | ED Physician Documentation ---
History of Present Illness - Stated complaint Stated Complaint: RED FLUID IN MOUTH - Chief complaint Chief Complaint: General - Additonal information Additional information: 72-year-old male presents emergency department for what sounds like emesis. He says that he ate at [facility] on May 24 and later that evening he puked up red fluid. It does not sound like it was hanna blood sounds like it was more red brown-tinged emesis. It happened again yesterday and then again today he says every time after he has been eating he has had a couple episodes of emesis. He denies any abdominal pain no fevers or chills he does endorse a history of GERD and he is anticoagulated on Xarelto for A-fib. He brought a bag of what he describes as red fluid when I look at it it appears brown to me it appears to be brown emesis. No hanna blood. PD PAST MEDICAL HISTORY - Past Medical History Cardiovascular: Hypertension, Atrial fibrillation Respiratory: None Neuro: None Endocrine/Autoimmune: None GI: None : None HEENT: Other Psych: None Musculoskeletal: None Derm: None - Past Surgical History Past Surgical History: No - Present Medications Home Medications: Ambulatory Orders Medication Instructions Recorded Confirmed Metoprolol Succinate 25 mg PO BID 10/28/19 05/28/23 Rivaroxaban [Xarelto] 5 mg PO DAILY 10/28/19 05/28/23 Sucralfate [Carafate] 1 gm PO QID #150 ml 05/28/23 - Allergies Allergies/Adverse Reactions: Allergies Allergy/AdvReac Type Severity Reaction Status Date / Time Latex, Natural Rubber Allergy Unknown Verified 05/28/23 16:05 lisinopril Allergy Unknown Verified 05/28/23 16:05 shellfish derived Allergy Unknown Verified 05/28/23 16:05 shrimp Allergy Unknown Verified 05/28/23 16:05 - Social History Does the pt smoke?: No Smoking Status: Never smoker Does the pt drink ETOH?: Yes Does the pt have substance abuse?: No - Immunizations Immunizations are current?: No Immunizations: TDAP >10years/unknown - POLST Patient has POLST: No PD ED PE NORMAL - Vitals Vital signs reviewed: Yes - General General: Alert and oriented X 3, No acute distress, Well developed/nourished - HEENT HEENT: Atraumatic - Cardiac Cardiac: RRR - Respiratory Respiratory: No respiratory distress, Clear bilaterally - Abdomen Abdomen: Normal bowel sounds, Soft, Non tender, Non distended, No organomegaly - Back Back: No CVA TTP - Derm Derm: Normal color, Warm and dry, No rash - Extremities Extremities: No edema, No calf tenderness / cord - Psych Psych: Normal mood Results - Vitals Vitals: Vital Signs - 24 hr 05/28/23 05/28/23 15:56 18:44 Temperature 35.7 C L Heart Rate 101 H 99 Respiratory 18 16 Rate Blood Pressure 139/99 H 145/108 H O2 Saturation 99 99 Oxygen O2 Source Room air - Labs Labs: Laboratory Tests 05/28/23 05/28/23 16:35 16:35 WBC 7.3 RBC 5.89 Hgb 17.9 Hct 53.8 H MCV 91.3 MCH 30.4 MCHC 33.3 RDW 13.0 Plt Count 223 MPV 9.1 Neut # (Auto) 4.9 Lymph # (Auto) 1.3 L [place] # (Auto) 0.7 Eos # (Auto) 0.2 Baso # (Auto) 0.0 Absolute Nucleated RBC 0.00 Nucleated RBC % 0.0 Sodium 140 Potassium 3.6 Chloride 100 L Carbon Dioxide 32 Anion Gap 8.0 BUN 18 Creatinine 1.3 Estimated GFR (MDRD) 55 L Glucose 89 Calcium 10.0 Magnesium 2.1 Total Bilirubin 0.6 AST 31 ALT 36 Alkaline Phosphatase 84 Total Protein 7.6 Albumin 4.9 Globulin 2.7 Albumin/Globulin Ratio 1.8 Lipase 57 PD Medical Decision Making - ED course ED course: 72-year-old male presents emergency department for what he describes as red fluid in his mouth. Upon further evaluation and interviewing and it sounds actually like the patient has been having brown emesis at home after eating. Labs are complete does not show any anemia, hemoglobin 17.9 making me less suspicious or concerned about a possible hemorrhage gastric ulcer. CMP is also unremarkable no electrolyte abnormalities. I consider doing a CT scan but given that patient has absolutely no abdominal pain or tenderness I do not see this to be beneficial for the patient. He was given a dose of Carafate and then he was able to eat crackers after that with no discomfort no nausea or vomiting. A prescription of Carafate was sent to patient's preferred pharmacy and he was t old to follow-up with his primary care provider for possible GI outpatient referral for nonemergent endoscopy colonoscopy. Patient says that he has an appoint with his primary care provider scheduled soon and will discuss today's ER visit. Return precautions given all questions answered. Departure - Departure Disposition: Home, Self Care Clinical Impression: Gastritis, Acid reflux Instructions: ED Gastritis Prescriptions: Sucralfate [Carafate] 1 gm PO QID #150 ml Comments: Thank you for trusting us with your care I believe that the symptoms you are experiencing are due to gastritis. Make sure going home you are eating a very bland diet and avoiding foods that are high in acid and red meats. I am sending home with a prescription of a medication called applique cutter fate you can take this 4 times a day about 15 to 30 minutes prior to each meal to help with your GI upset. It is importantly follow-up with your primary care provider outpatient for further evaluation of this and for a GI colonoscopy endoscopy outpatient referral. Please come back to the emergency department if you are starting to develop any worsening symptoms, abdominal pain, bright red bloody vomit, fevers and chills, or any other concerning symptoms. Forms: PCP List Discharge Date/Time: 05/28/23 18:46
[2023-05-28] MEDS: SUCRALFATE 1 GM/10 ML UDC PO STA (17:54)
[2023-05-28 18:49] VITALS: BP 145/108
== END 2023-05-28 18:46 | disposition home or self-care (01) ==
LOC: ED 15:47
DX: K21.9 Gastro-esophageal reflux disease without esophagitis (principal); K29.70 Gastritis, unspecified, without bleeding; I10 Essential (primary) hypertension; I48.91 Unspecified atrial fibrillation; Z79.01 Long term (current) use of anticoagulants
CPT/HCPCS: 36415; 80053; 83690; 83735; 85025; 96374; 99283; A9270